=== PATIENT | female | born 1980 | race American Indian/Alaskan Native ===

== ENCOUNTER 2021-09-19 03:01 | Emergency (ER) | payer MEDICAID ==
[2021-09-19 03:28] VITALS: BP 106/75
== END 2021-09-19 07:00 | disposition left against medical advice (07) ==
LOC: ED 03:01
DX: O26.891 Other specified pregnancy related conditions, first trimester (principal); R10.9 Unspecified abdominal pain; Z3A.09 9 weeks gestation of pregnancy; Z53.21 Procedure and treatment not carried out due to patient leaving prior to being seen by health care provider